=== PATIENT | female | born 1960 | race Caucasian/White ===

== ENCOUNTER → 2019-01-06 15:54 | Outpatient (CLI) | payer OTHER ==
[2019-01-06 17:02] LABS: BASOPHILS 0.4 % (0-2); EOSINOPHILS 1.5 % (0-7); HEMATOCRIT 46.7 % (36.0-48.0); HEMOGLOBIN 16.9 g/dL (12-16); IMMATURE GRANULOCYTES 0.1 % (0-5); LYMPHOCYTES 25.9 % (15-50); MCH 32.7 pg (26.0-34.0); MCHC 36.2 g/dL (31.0-37.0); MCV 90.3 fL (80.0-100.0); MEAN PLATELET VOLUME 13.3 fL (7.4-10.4); MONOCYTES 6.7 % (2-11); NEUTROPHILS 65.4 % (40-80); PLATELET COUNT 165 10x3/uL (130-400); RBC 5.17 10x6/uL (4.00-5.40); RDW 13.2 % (11.5-14.5); WBC 10.9 10x3/uL (4.8-10.8)
[2019-01-12 15:10] LABS: IMMUNOGLOBULIN E 176 IU/mL (6-495)
[2019-01-12 19:08] LABS: FUNGAL - ASP FLAVUS Negative (Neg:<1:1); FUNGAL - ASP NIGER Negative (Neg:<1:1); FUNGAL - ASPER FUMIGATUS Negative (Neg:<1:1)
== END | disposition home or self-care (01) ==
LOC: D.LABREF 15:54
PROVIDERS: ATTEND Internal Medicine Pulmonary Disease
DX: Z77.120 Contact with and (suspected) exposure to mold (toxic) (principal); J44.9 Chronic obstructive pulmonary disease, unspecified

== ENCOUNTER → 2019-02-22 10:11 | Outpatient (CLI) | payer OTHER ==
[2019-02-22 11:57] LABS: BASOPHILS 0.7 % (0-2); EOSINOPHILS 0.8 % (0-7); HEMATOCRIT 43.6 % (36.0-48.0); HEMOGLOBIN 15.2 g/dL (12-16); IMMATURE GRANULOCYTES 0.1 % (0-5); LYMPHOCYTES 45.5 % (15-50); MCH 31.7 pg (26.0-34.0); MCHC 34.9 g/dL (31.0-37.0); MEAN PLATELET VOLUME 12.7 fL (7.4-10.4); MONOCYTES 8.9 % (2-11); PLATELET COUNT 149 10x3/uL (130-400); RBC 4.79 10x6/uL (4.00-5.40); RDW 13.2 % (11.5-14.5); WBC 7.1 10x3/uL (4.8-10.8)
[2019-02-25 03:07] LABS: IMMUNOGLOBULIN E 179 IU/mL (6-495)
[2019-02-26 14:08] LABS: FUNGAL - ASP FLAVUS Negative (Neg:<1:1); FUNGAL - ASP NIGER Negative (Neg:<1:1); FUNGAL - ASPER FUMIGATUS Negative (Neg:<1:1)
== END | disposition home or self-care (01) ==
LOC: D.RT 10:11
PROVIDERS: ATTEND Internal Medicine Pulmonary Disease
DX: J44.9 Chronic obstructive pulmonary disease, unspecified (principal)